=== PATIENT | male | born 1950 | race Caucasian/White ===

== ENCOUNTER 2016-06-17 00:01 | Emergency (ER) | payer OTHER ==
[~2016-06-17] VITALS: Ht 188 cm; Wt 89.0 kg
[~2016-06-17 00:01] MED LIST: ASPI-1093 PO; CLOP75 PO; INSNOV SQ; INSU100V12 SQ; LISI-661 PO; LURA40 PO; MIRT15 PO; TAMS0.4C32 PO; VENL75CA55 PO
[2016-06-17] MEDS ORDERED: INSLAN SQ (00:07)
[2016-06-17] MEDS ORDERED: GABA-533 PO (00:07)
[2016-06-17 02:35] VITALS: BP 136/89
== END 2016-06-17 02:59 | disposition home or self-care (01) ==
LOC: EMS 00:03
DX: F32.9 Major depressive disorder, single episode, unspecified (principal); E11.9 Type 2 diabetes mellitus without complications; I10 Essential (primary) hypertension; F17.210 Nicotine dependence, cigarettes, uncomplicated; Z79.4 Long term (current) use of insulin
CPT/HCPCS: 82962; 99284

== ENCOUNTER 2016-08-06 23:40 | Emergency (ER) | payer OTHER ==
[~2016-08-06] VITALS: Ht 188 cm; Wt 90.0 kg
[~2016-08-06 23:40] MED LIST changes: -ASPI-1093 PO; +GABA-533 PO; +INSLAN SQ; -INSU100V12 SQ; -LURA40 PO
[2016-08-07 00:20] LABS: BASOPHILS % (AUTO) 0.6 % (0.0-2.0); EOSINOPHILS % (AUTO) 2.7 % (1.0-6.0); HEMATOCRIT 34.9 % (41-53); HEMOGLOBIN 11.7 g/dL (13.5-17.5); LYMPHOCYTES # (AUTO) 2.6 K/uL (1.0-4.8); LYMPHOCYTES % (AUTO) 24.3 % (22.0-44.0); MEAN CORPUSCULAR HEMOGLOBIN 30.4 pg (26.0-34.0); MEAN CORPUSCULAR HGB CONC 33.5 G/dL (31.0-37.0); MEAN CORPUSCULAR VOLUME 91 fL (80-100); MONOCYTES % (AUTO) 9.2 % (2.0-9.0); NEUTROPHILS # (AUTO) 6.7 K/uL (1.8-7.7); NEUTROPHILS % (AUTO) 63.2 % (40.0-70.0); PLATELET COUNT (AUTO) 327 K/uL (150-450); RED BLOOD CELL COUNT(AUTO) 3.85 MIL/uL (4.50-5.90); RED CELL DISTRIBUTION WIDTH 14.1 % (11.5-14.5); WHITE BLOOD COUNT (AUTO) 10.7 K/uL (4.5-11.0)
[2016-08-07 00:34] LABS: ANION GAP 13 mmol/L (8-16); CALCIUM, TOTAL 7.9 mg/dL (8.8-10.5); CARBON DIOXIDE 23 mmol/L (22-29); CHLORIDE 105 mmol/L (98-107); CREATININE 1.08 mg/dL (0.60-1.30); GLOMERULAR FILTR. RATE CALC > 60 mL/min (>60); POTASSIUM 3.4 mmol/L (3.5-5.1); SODIUM SERUM 141 mmol/L (136-145); UREA NITROGEN, BLOOD 16 mg/dL (7-18)
[2016-08-07 00:40] LABS: ALANINE AMINOTRANSFERASE 20 U/L (12-78); ALBUMIN 3.3 g/dL (3.4-5.0); ASPARTATE AMINOTRANSFERASE 14 U/L (15-37); BILIRUBIN,TOTAL 0.2 mg/dL (0.1-1.0)
[2016-08-07] MEDS ORDERED: POTASSIUM CHLORIDE 10% 40 MEQ/30 ML LIQUID UDCUP PO ONE (01:00)
[2016-08-07 03:02] LABS: GLUCOSE,POINT OF CARE 252 MG/DL (70-110)
[2016-08-07 04:01] VITALS: BP 117/67
== END 2016-08-07 04:05 | disposition home or self-care (01) ==
LOC: EMS 23:43
DX: E11.65 Type 2 diabetes mellitus with hyperglycemia (principal); Z79.4 Long term (current) use of insulin; Z79.01 Long term (current) use of anticoagulants; F17.210 Nicotine dependence, cigarettes, uncomplicated
CPT/HCPCS: 82962; 99284

== ENCOUNTER 2016-08-14 13:38 | Emergency (ER) | payer OTHER ==
[~2016-08-14] VITALS: Ht 188 cm; Wt 92.7 kg
[2016-08-14 13:52] LABS: GLUCOSE COMMENT 1 Repeated; GLUCOSE,POINT OF CARE 455 MG/DL (70-110)
[2016-08-14] MEDS ORDERED: TraMADol HCL 50 MG TABLET PO ONE (15:15)
[2016-08-14] MEDS ORDERED: INSULIN REGULAR, HUMAN 100 UNITS/ML SQ ONE (15:15)
[2016-08-14 15:16] LABS: GLUCOSE COMMENT 1 Repeated; GLUCOSE,POINT OF CARE 414 MG/DL (70-110)
[2016-08-14 16:35] VITALS: BP 140/74
[2016-08-14 16:42] LABS: GLUCOSE,POINT OF CARE 313 MG/DL (70-110)
== END 2016-08-14 16:55 | disposition home or self-care (01) ==
LOC: EMS 13:39
DX: S20.212A Contusion of left front wall of thorax, initial encounter (principal); E11.9 Type 2 diabetes mellitus without complications; I10 Essential (primary) hypertension; F17.210 Nicotine dependence, cigarettes, uncomplicated; Z79.4 Long term (current) use of insulin; W01.198A Fall on same level from slipping, tripping and stumbling with subsequent striking against other object, initial encounter; Y93.89 Activity, other specified; Y92.89 Other specified places as the place of occurrence of the external cause; Y99.8 Other external cause status
CPT/HCPCS: 71101; 82962; 96372; 99284; J1815

== ENCOUNTER 2017-01-05 13:49 | Inpatient (IN) | payer MEDICARE, OTHER ==
[~2017-01-05] VITALS: Ht 180.3 cm; Wt 86.6 kg
[2017-01-05 14:27] LABS: GLUCOSE,POINT OF CARE 253 MG/DL (70-110)
[2017-01-05] MEDS ORDERED: SODIUM CHLORIDE 0.9% 1,000 ML IV ONE ×2 (15:15→16:45)
[2017-01-05 15:35] LABS: BASOPHILS % (AUTO) 0.8 % (0.0-2.0); EOSINOPHILS % (AUTO) 1.2 % (1.0-6.0); HEMATOCRIT 43.7 % (41-53); HEMOGLOBIN 14.8 g/dL (13.5-17.5); LYMPHOCYTES % (AUTO) 22.5 % (22.0-44.0); MEAN CORPUSCULAR HEMOGLOBIN 30.8 pg (26.0-34.0); MEAN CORPUSCULAR HGB CONC 33.9 G/dL (31.0-37.0); MEAN CORPUSCULAR VOLUME 91 fL (80-100); MONOCYTES # (AUTO) 0.4 K/uL (0.1-1.0); MONOCYTES % (AUTO) 4.7 % (2.0-9.0); NEUTROPHILS # (AUTO) 6.2 K/uL (1.8-7.7); NEUTROPHILS % (AUTO) 70.8 % (40.0-70.0); PLATELET COUNT (AUTO) 434 K/uL (150-450); RED BLOOD CELL COUNT(AUTO) 4.81 MIL/uL (4.50-5.90); RED CELL DISTRIBUTION WIDTH 15.4 % (11.5-14.5); WHITE BLOOD COUNT (AUTO) 8.7 K/uL (4.5-11.0)
[2017-01-05 15:46] LABS: ANION GAP 16 mmol/L (8-16); CALCIUM, TOTAL 8.6 mg/dL (8.8-10.5); CARBON DIOXIDE 23 mmol/L (22-29); CHLORIDE 112 mmol/L (98-107); CREATININE 0.87 mg/dL (0.60-1.30); GLOMERULAR FILTR. RATE CALC > 60 mL/min (>60); POTASSIUM 3.6 mmol/L (3.5-5.1); SODIUM SERUM 151 mmol/L (136-145); UREA NITROGEN, BLOOD 11 mg/dL (7-18)
[2017-01-05 15:55] LABS: ALANINE AMINOTRANSFERASE 28 U/L (12-78); ALBUMIN 3.6 g/dL (3.4-5.0); ASPARTATE AMINOTRANSFERASE 15 U/L (15-37); BILIRUBIN,TOTAL 0.1 mg/dL (0.1-1.0); TOTAL PROTEIN, SERUM 7.8 g/dL (6.4-8.2)
[2017-01-05] MEDS ORDERED: ASPIRIN 81 MG CHEWABLE TABLET PO ONE (16:45)
[2017-01-05] MEDS ORDERED: ONDANSETRON HCL 4 MG/2 ML VIAL IVP PRN ×2 (17:30→20:00)
[2017-01-05] MEDS ORDERED: ACETAMINOPHEN 325 MG TABLET PO PRN (17:30)
[2017-01-05] MEDS ORDERED: 0.9% SODIUM CHLORIDE 10 ML SYRINGE IVP PRN (17:30)
[2017-01-05 18:40] VITALS: BP 157/77
[2017-01-05] MEDS ORDERED: POTASSIUM CHLORIDE 20 MEQ ER TABLET PO PRN (20:00)
[2017-01-05] MEDS ORDERED: MAGNESIUM SULFATE 4 GM/WATER 100 ML IV PRN (20:00)
[2017-01-05] MEDS ORDERED: DEXTROSE 50%-WATER 25 GM/50 ML SYRINGE IVP PRN (20:00)
[2017-01-05] MEDS ORDERED: ALBUTEROL SULFATE 2.5 MG/0.5 ML NEB SOLUTION NEB PRN (20:00)
[2017-01-05] MEDS ORDERED: MAGNESIUM HYDROXIDE SUSPENSION 30 ML UDCUP PO PRN (20:00)
[2017-01-05] MEDS ORDERED: MAGNESIUM OXIDE 400 MG TABLET PO PRN (20:00)
[2017-01-05] MEDS ORDERED: LORazepam 2 MG/ML VIAL IVP PRN (20:00)
[2017-01-05] MEDS ORDERED: MAGNESIUM SULFATE 2 GM in DEXTROSE 5%-WATER 50 ML IV PRN (20:00)
[2017-01-05 20:04] VITALS: BP 122/86
[2017-01-05] MEDS: DOCUSATE SODIUM 100 MG CAPSULE PO SCH (21:00)
[2017-01-05] MEDS: SODIUM CHLORIDE 0.45% 1,000 ML IV SCH (21:05)
[2017-01-05] MEDS: INSULIN ASPART 100 UNITS/ML SQ PRN (21:12)
[2017-01-05] MEDS: POTASSIUM CHL 10 MEQ/WATER 50 ML IV PRN ×2 (22:21→23:54)
[2017-01-06] VITALS (7 sets, daily range): BP systolic 121–148; BP diastolic 65–72
[2017-01-06] MEDS: POTASSIUM CHL 10 MEQ/WATER 50 ML IV PRN (01:46)
[2017-01-06] MEDS: INSULIN ASPART 100 UNITS/ML SQ PRN ×4 (06:21→21:36)
[2017-01-06 06:28] LABS: GLUCOSE COMMENT 1 Received Meds; GLUCOSE,POINT OF CARE 191 MG/DL (70-110)
[2017-01-06 06:48] LABS: GLUCOSE COMMENT 1 Received Meds; GLUCOSE,POINT OF CARE 170 MG/DL (70-110)
[2017-01-06 07:03] LABS: ANION GAP 12 mmol/L (8-16); CALCIUM, TOTAL 7.8 mg/dL (8.8-10.5); CARBON DIOXIDE 21 mmol/L (22-29); CHLORIDE 111 mmol/L (98-107); CREATININE 0.79 mg/dL (0.60-1.30); GLOMERULAR FILTR. RATE CALC > 60 mL/min (>60); POTASSIUM 3.4 mmol/L (3.5-5.1); SODIUM SERUM 144 mmol/L (136-145); UREA NITROGEN, BLOOD 12 mg/dL (7-18)
[2017-01-06] MEDS: DOCUSATE SODIUM 100 MG CAPSULE PO SCH ×2 (08:22→21:32)
[2017-01-06] MEDS: PANTOPRAZOLE SODIUM 40 MG/VIAL IVP SCH (08:22)
[2017-01-06] MEDS: MULTIVITAMINS WITH MINERALS, THERAPEUTIC TABLET PO SCH (08:22)
[2017-01-06 10:20] LABS: APPEARANCE,URINE CLEAR (CLEAR); GLUCOSE, URINE (UA) >=1000 mg/dL (NEGATIVE); KETONES,URINE 15 mg/dL (NEGATIVE); LEUKOCYTE ESTERASE ,URINE NEGATIVE (NEGATIVE); OCCULT BLOOD,URINE TRACE (NEGATIVE); PH,URINE 5.5 (5.0-8.0); PROTEIN,URINE NEGATIVE (NEGATIVE)
[2017-01-06 10:30] LABS: RBC,URINE 0-2 /HPF (0-2); WBC,URINE None Seen /HPF (0-5)
[2017-01-06] MEDS: ASPIRIN 81 MG CHEWABLE TABLET PO SCH (11:39)
[2017-01-06] MEDS: SODIUM CHLORIDE 0.45% 1,000 ML IV SCH (11:46)
[2017-01-06 18:08] LABS: GLUCOSE COMMENT 1 Received Meds; GLUCOSE,POINT OF CARE 156 MG/DL (70-110)
[2017-01-06] MEDS: ACETAMINOPHEN 325 MG TABLET PO PRN (19:04)
[2017-01-06] MEDS ORDERED: ATORVASTATIN CALCIUM 20 MG TABLET PO SCH (21:00)
[2017-01-06 21:48] LABS: GLUCOSE COMMENT 1 Received Meds; GLUCOSE,POINT OF CARE 147 MG/DL (70-110)
[2017-01-07] MEDS: SODIUM CHLORIDE 0.45% 1,000 ML IV SCH (03:24)
[2017-01-07 04:20] VITALS: BP 146/74
[2017-01-07] MEDS: INSULIN ASPART 100 UNITS/ML SQ PRN ×3 (06:01→17:38)
[2017-01-07 06:13] LABS: GLUCOSE COMMENT 1 Received Meds; GLUCOSE,POINT OF CARE 208 MG/DL (70-110)
[2017-01-07 06:23] LABS: GLUCOSE COMMENT 1 Received Meds; GLUCOSE,POINT OF CARE 163 MG/DL (70-110)
[2017-01-07 07:38] VITALS: BP 152/66
[2017-01-07] MEDS: ASPIRIN 81 MG CHEWABLE TABLET PO SCH (08:02)
[2017-01-07] MEDS: DOCUSATE SODIUM 100 MG CAPSULE PO SCH (08:02)
[2017-01-07] MEDS: MULTIVITAMINS WITH MINERALS, THERAPEUTIC TABLET PO SCH (08:02)
[2017-01-07] MEDS: PANTOPRAZOLE SODIUM 40 MG/VIAL IVP SCH (08:02)
[2017-01-07] MEDS: ACETAMINOPHEN 325 MG TABLET PO PRN (08:03)
[2017-01-07 10:26] LABS: ANION GAP 11 mmol/L (8-16); CALCIUM, TOTAL 8.5 mg/dL (8.8-10.5); CARBON DIOXIDE 22 mmol/L (22-29); CHLORIDE 113 mmol/L (98-107); CREATININE 0.89 mg/dL (0.60-1.30); GLOMERULAR FILTR. RATE CALC > 60 mL/min (>60); POTASSIUM 4.2 mmol/L (3.5-5.1); SODIUM SERUM 146 mmol/L (136-145); UREA NITROGEN, BLOOD 8 mg/dL (7-18)
[2017-01-07 11:30] VITALS: BP 144/76
[2017-01-07] MEDS ORDERED: SODIUM CHLORIDE 0.9% 250 ML IV ONE (14:17)
[2017-01-07 22:52] LABS: GLUCOSE COMMENT 1 Received Meds; GLUCOSE,POINT OF CARE 234 MG/DL (70-110)
[2017-01-07 22:52] LABS: GLUCOSE COMMENT 1 Received Meds; GLUCOSE,POINT OF CARE 192 MG/DL (70-110)
== END 2017-01-07 18:50 | disposition home or self-care (01) | DRG 896 ==
LOC: EMS 13:50 → 5S 17:27 → 6N 01-06 16:30
PROVIDERS: ADMIT Internal Medicine; ATTEND Internal Medicine
DX: F10.129 Alcohol abuse with intoxication, unspecified (principal); K85.90 Acute pancreatitis without necrosis or infection, unspecified; E87.0 Hyperosmolality and hypernatremia; E11.65 Type 2 diabetes mellitus with hyperglycemia; I10 Essential (primary) hypertension; F32.9 Major depressive disorder, single episode, unspecified; F17.210 Nicotine dependence, cigarettes, uncomplicated; Z79.4 Long term (current) use of insulin; Z86.73 Personal history of transient ischemic attack (TIA), and cerebral infarction without residual deficits; Z90.49 Acquired absence of other specified parts of digestive tract; Z95.5 Presence of coronary angioplasty implant and graft; Z91.19 Patient's noncompliance with other medical treatment and regimen
CPT/HCPCS: 70450; 70551; 82948; 82962; 83735; 84132; 93005; 96360; 96361; 99285; C9113; G0480; J3475; J3480; J7030; J7050; J7060

== ENCOUNTER 2017-03-24 13:05 | Emergency (ER) | payer MEDICARE, OTHER ==
[~2017-03-24] VITALS: Ht 182.9 cm; Wt 86.4 kg
[~2017-03-24 13:05] MED LIST changes: -CLOP75 PO; -GABA-533 PO; -INSLAN SQ; -MIRT15 PO
[2017-03-24 13:32] LABS: GLUCOSE,POINT OF CARE 301 MG/DL (70-110)
[2017-03-24] MEDS ORDERED: ALBUTEROL SULFATE 2.5 MG/0.5 ML NEB SOLUTION NEB ONE (14:30)
[2017-03-24] MEDS ORDERED: IPRATROPIUM BROMIDE 0.5 MG/2.5 ML NEB SOLUTION NEB ONE (14:30)
[2017-03-24 17:26] VITALS: BP 139/73
== END 2017-03-24 17:31 | disposition home or self-care (01) ==
LOC: EMS 13:09
DX: T59.91XA Toxic effect of unspecified gases, fumes and vapors, accidental (unintentional), initial encounter (principal); F10.20 Alcohol dependence, uncomplicated; E11.9 Type 2 diabetes mellitus without complications; I10 Essential (primary) hypertension; F17.210 Nicotine dependence, cigarettes, uncomplicated; Z79.4 Long term (current) use of insulin; Y92.89 Other specified places as the place of occurrence of the external cause
CPT/HCPCS: 82948; 82962; 94640; 99283

== ENCOUNTER 2017-03-30 14:11 | Inpatient (IN) | payer MEDICARE ==
[~2017-03-30] VITALS: Ht 185.4 cm; Wt 88.6 kg
[2017-03-30 14:51] VITALS: BP 103/54
[2017-03-30] MEDS ORDERED: INFLUENZA VIRUS VACCINE QVS 2017-18 (3YR+)/PF 60 MCG/0.5 ML SYRINGE IM ONE (15:30)
[2017-03-30] MEDS ORDERED: LOPERAMIDE HCL 2 MG CAPSULE PO PRN ×2 (15:45)
[2017-03-30] MEDS ORDERED: MAG HYDROX/AL HYDROX/SIMETH ES 30 ML SUSPENSION UDCUP PO PRN (15:45)
[2017-03-30] MEDS ORDERED: GuaiFENesin/D-METHORPHAN [SUGAR-FREE] 200-20MG/10 ML SYRUP UDCUP PO PRN (15:45)
[2017-03-30] MEDS ORDERED: HydrOXYzine PAMOATE 50 MG CAPSULE PO PRN (15:45)
[2017-03-30] MEDS ORDERED: MAGNESIUM HYDROXIDE SUSPENSION 30 ML UDCUP PO PRN (15:45)
[2017-03-30] MEDS ORDERED: LORazepam 2 MG TABLET PO PRN ×2 (15:45)
[2017-03-30] MEDS ORDERED: TUBERCULIN, PURIFIED PROTEIN DERIVATIVE 5 TU/0.1 ML SYG ID ONE (15:45)
[2017-03-30] MEDS ORDERED: ZOLPIDEM TARTRATE 10 MG TABLET PO PRN (15:45)
[2017-03-30] MEDS ORDERED: QUEtiapine FUMARATE 100 MG TABLET PO PRN (15:45)
[2017-03-30] MEDS ORDERED: CYANOCOBALAMIN 1,000 MCG/ML VIAL IM ONE (15:45)
[2017-03-30] MEDS ORDERED: ACETAMINOPHEN 325 MG TABLET PO PRN ×2 (15:45→17:45)
[2017-03-30] MEDS ORDERED: PROMETHAZINE HCL 25 MG TABLET PO PRN (15:45)
[2017-03-30 16:00] VITALS: BP 103/66
[2017-03-30] MEDS ORDERED: VENL-68 PO (16:01)
[2017-03-30 17:00] VITALS: BP 110/62
[2017-03-30 17:02] LABS: GLUCOSE,POINT OF CARE 249 MG/DL (70-110)
[2017-03-30] MEDS: THIAMINE HCL 100 MG TABLET PO SCH (17:03)
[2017-03-30] MEDS ORDERED: DEXTROSE 50%-WATER 25 GM/50 ML SYRINGE IVP PRN (17:45)
[2017-03-30 18:00] VITALS: BP 105/65
[2017-03-30] MEDS: INSULIN ASPART 100 UNITS/ML SQ PRN ×2 (18:02→21:20)
[2017-03-30 19:00] VITALS: BP 114/68
[2017-03-30 20:33] LABS: GLUCOSE,POINT OF CARE 290 MG/DL (70-110)
[2017-03-31] VITALS (7 sets, daily range): BP systolic 122–149; BP diastolic 65–82
[2017-03-31] MEDS ORDERED: GLUCAGON,HUMAN RECOMBINANT 1 MG VIAL IM PRN (00:30)
[2017-03-31 06:18] LABS: GLUCOSE,POINT OF CARE 211 MG/DL (70-110)
[2017-03-31] MEDS ORDERED: LORazepam 2 MG TABLET PO PRN (07:00)
[2017-03-31] MEDS: INSULIN ASPART 100 UNITS/ML SQ PRN ×4 (07:12→20:59)
[2017-03-31 08:00] LABS: BASOPHILS # (AUTO) 0.06 K/uL (0.00-0.20); BASOPHILS % (AUTO) 0.7 % (0.0-2.0); HEMATOCRIT 40.6 % (41-53); HEMOGLOBIN 13.7 g/dL (13.5-17.5); LYMPHOCYTES # (AUTO) 1.9 K/uL (1.0-4.8); LYMPHOCYTES % (AUTO) 23.2 % (22.0-44.0); MEAN CORPUSCULAR HEMOGLOBIN 31.2 pg (26.0-34.0); MEAN CORPUSCULAR HGB CONC 33.7 G/dL (31.0-37.0); MEAN CORPUSCULAR VOLUME 93 fL (80-100); MONOCYTES # (AUTO) 0.7 K/uL (0.1-1.0); MONOCYTES % (AUTO) 8.2 % (2.0-9.0); NEUTROPHILS # (AUTO) 5.3 K/uL (1.8-7.7); NEUTROPHILS % (AUTO) 65.4 % (40.0-70.0); PLATELET COUNT (AUTO) 308 K/uL (150-450); RED BLOOD CELL COUNT(AUTO) 4.38 MIL/uL (4.50-5.90); RED CELL DISTRIBUTION WIDTH 14.5 % (11.5-14.5); WHITE BLOOD COUNT (AUTO) 8.1 K/uL (4.5-11.0)
[2017-03-31 08:20] LABS: ALANINE AMINOTRANSFERASE 23 U/L (12-78); ALBUMIN 3.5 g/dL (3.4-5.0); ANION GAP 8 mmol/L (8-16); ASPARTATE AMINOTRANSFERASE 15 U/L (15-37); BILIRUBIN,TOTAL 0.4 mg/dL (0.1-1.0); CALCIUM, TOTAL 8.8 mg/dL (8.8-10.5); CARBON DIOXIDE 27 mmol/L (22-29); CHLORIDE 106 mmol/L (98-107); CHOL/HDL RATIO 2.7 (4.2-7.3); CREATININE 1.08 mg/dL (0.60-1.30); GLOMERULAR FILTR. RATE CALC > 60 mL/min (>60); POTASSIUM 4.5 mmol/L (3.5-5.1); SODIUM SERUM 141 mmol/L (136-145); THYROID STIMULATING HORMONE 0.94 uIU/mL (0.36-3.74); TOTAL PROTEIN, SERUM 7.1 g/dL (6.4-8.2); UREA NITROGEN, BLOOD 24 mg/dL (7-18)
[2017-03-31 08:35] LABS: HEMOGLOBIN A1C 8.9 % (4.5-6.2)
[2017-03-31] MEDS: MULTIVITAMINS WITH MINERALS, THERAPEUTIC TABLET PO SCH (08:53)
[2017-03-31] MEDS: LORazepam 2 MG TABLET PO SCH ×4 (08:53→20:38)
[2017-03-31] MEDS: FOLIC ACID 1 MG TABLET PO SCH (08:53)
[2017-03-31] MEDS: THIAMINE HCL 100 MG TABLET PO SCH ×2 (08:53→16:33)
[2017-03-31] MEDS: NALTREXONE HCL 50 MG TABLET PO SCH (08:53)
[2017-03-31] MEDS: NICOTINE 21 MG/24 HOUR PATCH TD SCH (08:53)
[2017-03-31] MEDS ORDERED: VENLAFAXINE HCL 75 MG TABLET PO SCH (09:00)
[2017-03-31 16:18] LABS: GLUCOSE,POINT OF CARE 267 MG/DL (70-110)
[2017-03-31 16:32] LABS: GLUCOSE,POINT OF CARE 296 MG/DL (70-110)
[2017-03-31] MEDS ORDERED: ACETAMINOPHEN 325 MG TABLET PO PRN (19:00)
[2017-03-31] MEDS ORDERED: ALBUTEROL SULFATE HFA 90 MCG/PUFF 8 GM INHALER IH PRN (19:00)
[2017-03-31] MEDS ORDERED: IBUPROFEN 400 MG TABLET PO PRN (19:00)
[2017-03-31 20:28] LABS: GLUCOSE,POINT OF CARE 345 MG/DL (70-110)
[2017-03-31] MEDS: MIRTAZAPINE 15 MG TABLET PO SCH (20:37)
[2017-04-01 06:40] LABS: GLUCOSE,POINT OF CARE 248 MG/DL (70-110)
[2017-04-01 06:45] VITALS: BP 135/78
[2017-04-01] MEDS: INSULIN ASPART 100 UNITS/ML SQ PRN ×4 (07:07→20:34)
[2017-04-01 08:40] VITALS: BP 148/75
[2017-04-01] MEDS: THIAMINE HCL 100 MG TABLET PO SCH ×2 (09:05→17:02)
[2017-04-01] MEDS: NALTREXONE HCL 50 MG TABLET PO SCH (09:05)
[2017-04-01] MEDS: NICOTINE 21 MG/24 HOUR PATCH TD SCH (09:06)
[2017-04-01] MEDS: MULTIVITAMINS WITH MINERALS, THERAPEUTIC TABLET PO SCH (09:06)
[2017-04-01] MEDS: FOLIC ACID 1 MG TABLET PO SCH (09:06)
[2017-04-01] MEDS: LORazepam 2 MG TABLET PO SCH ×4 (09:06→20:26)
[2017-04-01] MEDS: LISINOPRIL 10 MG TABLET PO SCH (09:06)
[2017-04-01] MEDS: TAMSULOSIN HCL 0.4 MG CAPSULE PO SCH (09:06)
[2017-04-01 09:07] LABS: THYROID STIMULATING HORMONE 0.79 uIU/mL (0.36-3.74)
[2017-04-01 09:13] LABS: HEMOGLOBIN A1C 8.9 % (4.5-6.2)
[2017-04-01 11:38] LABS: GLUCOSE,POINT OF CARE 289 MG/DL (70-110)
[2017-04-01 17:00] VITALS: BP 100/60
[2017-04-01 17:13] LABS: GLUCOSE,POINT OF CARE 329 MG/DL (70-110)
[2017-04-01 20:25] VITALS: BP 114/63
[2017-04-01] MEDS: MIRTAZAPINE 15 MG TABLET PO SCH (20:26)
[2017-04-01 20:52] LABS: GLUCOSE,POINT OF CARE 334 MG/DL (70-110)
[2017-04-02 06:26] VITALS: BP 110/70
[2017-04-02] MEDS ORDERED: LORazepam 1 MG TABLET PO PRN (07:00)
[2017-04-02 07:17] LABS: GLUCOSE,POINT OF CARE 249 MG/DL (70-110)
[2017-04-02] MEDS: INSULIN ASPART 100 UNITS/ML SQ PRN ×4 (07:19→20:15)
[2017-04-02] MEDS: TAMSULOSIN HCL 0.4 MG CAPSULE PO SCH (08:39)
[2017-04-02] MEDS: LORazepam 1 MG TABLET PO SCH ×4 (08:39→20:11)
[2017-04-02] MEDS: THIAMINE HCL 100 MG TABLET PO SCH ×2 (08:39→16:55)
[2017-04-02] MEDS: FOLIC ACID 1 MG TABLET PO SCH (08:39)
[2017-04-02] MEDS: LISINOPRIL 10 MG TABLET PO SCH (08:40)
[2017-04-02] MEDS: MULTIVITAMINS WITH MINERALS, THERAPEUTIC TABLET PO SCH (08:40)
[2017-04-02] MEDS: NICOTINE 21 MG/24 HOUR PATCH TD SCH (08:40)
[2017-04-02] MEDS: NALTREXONE HCL 50 MG TABLET PO SCH (08:40)
[2017-04-02 09:18] VITALS: BP 145/70
[2017-04-02 12:10] LABS: GLUCOSE,POINT OF CARE 327 MG/DL (70-110)
[2017-04-02 12:40] VITALS: BP 106/52
[2017-04-02 16:10] VITALS: BP 115/86
[2017-04-02 16:20] VITALS: BP 115/66
[2017-04-02 17:28] LABS: GLUCOSE,POINT OF CARE 230 MG/DL (70-110)
[2017-04-02] MEDS: MIRTAZAPINE 15 MG TABLET PO SCH (20:11)
[2017-04-02 20:27] LABS: GLUCOSE,POINT OF CARE 291 MG/DL (70-110)
[2017-04-03 06:18] VITALS: BP 140/80
[2017-04-03 06:48] LABS: GLUCOSE COMMENT 1 Received Meds; GLUCOSE,POINT OF CARE 294 MG/DL (70-110)
[2017-04-03] MEDS: INSULIN ASPART 100 UNITS/ML SQ PRN ×4 (06:48→20:12)
[2017-04-03] MEDS ORDERED: LORazepam 1 MG TABLET PO PRN (07:00)
[2017-04-03 08:46] VITALS: BP 112/68
[2017-04-03 09:00] VITALS: BP 112/68
[2017-04-03] MEDS: NICOTINE 21 MG/24 HOUR PATCH TD SCH (09:03)
[2017-04-03] MEDS: MULTIVITAMINS WITH MINERALS, THERAPEUTIC TABLET PO SCH (09:03)
[2017-04-03] MEDS: LISINOPRIL 10 MG TABLET PO SCH (09:03)
[2017-04-03] MEDS: TAMSULOSIN HCL 0.4 MG CAPSULE PO SCH (09:03)
[2017-04-03] MEDS: FOLIC ACID 1 MG TABLET PO SCH (09:03)
[2017-04-03] MEDS: NALTREXONE HCL 50 MG TABLET PO SCH (09:03)
[2017-04-03] MEDS: THIAMINE HCL 100 MG TABLET PO SCH ×2 (09:03→16:57)
[2017-04-03 11:13] LABS: GLUCOSE,POINT OF CARE 379 MG/DL (70-110)
[2017-04-03 16:06] VITALS: BP 122/61
[2017-04-03 16:09] VITALS: BP 122/61
[2017-04-03 16:28] LABS: GLUCOSE,POINT OF CARE 290 MG/DL (70-110)
[2017-04-03] MEDS: MIRTAZAPINE 15 MG TABLET PO SCH (20:07)
[2017-04-03 21:22] LABS: GLUCOSE,POINT OF CARE 310 MG/DL (70-110)
[2017-04-04 00:01] VITALS: BP 128/65
[2017-04-04 01:33] VITALS: BP 128/65
[2017-04-04] MEDS: INSULIN ASPART 100 UNITS/ML SQ PRN ×2 (06:32→11:06)
[2017-04-04 07:03] LABS: GLUCOSE,POINT OF CARE 277 MG/DL (70-110)
[2017-04-04 08:41] VITALS: BP_SYST 110; BP_SYST 128; BP_DIAS 65; BP_DIAS 67
[2017-04-04] MEDS: FOLIC ACID 1 MG TABLET PO SCH (08:52)
[2017-04-04] MEDS: TAMSULOSIN HCL 0.4 MG CAPSULE PO SCH (08:52)
[2017-04-04] MEDS: NALTREXONE HCL 50 MG TABLET PO SCH (08:52)
[2017-04-04] MEDS: MULTIVITAMINS WITH MINERALS, THERAPEUTIC TABLET PO SCH (08:52)
[2017-04-04] MEDS: THIAMINE HCL 100 MG TABLET PO SCH (08:52)
[2017-04-04] MEDS: LISINOPRIL 10 MG TABLET PO SCH (08:52)
[2017-04-04] MEDS: NICOTINE 21 MG/24 HOUR PATCH TD SCH (08:53)
[2017-04-04 11:13] LABS: GLUCOSE,POINT OF CARE 351 MG/DL (70-110)
[2017-04-04 12:30] VITALS: BP 129/77
[2017-04-04] MEDS ORDERED: NALT50TA PO (14:34)
[2017-04-04] MEDS ORDERED: THIA100 PO (20:40)
[2017-04-04] MEDS ORDERED: NALT50TA6 PO (20:40)
[2017-04-04] MEDS ORDERED: FOLI1 PO (20:40)
[2017-04-04] MEDS ORDERED: MIRT15 PO (20:40)
== END 2017-04-04 20:30 | disposition short-term general hospital (02) | DRG 881 ==
LOC: B2X 16:00
PROVIDERS: ADMIT Psychiatry & Neurology Psychiatry; ATTEND Psychiatry & Neurology Psychiatry
DX: F32.9 Major depressive disorder, single episode, unspecified (principal); E11.9 Type 2 diabetes mellitus without complications; J44.9 Chronic obstructive pulmonary disease, unspecified; E78.5 Hyperlipidemia, unspecified; F14.90 Cocaine use, unspecified, uncomplicated; I10 Essential (primary) hypertension; K58.9 Irritable bowel syndrome, unspecified; N40.0 Benign prostatic hyperplasia without lower urinary tract symptoms; Z79.899 Other long term (current) drug therapy; Z81.8 Family history of other mental and behavioral disorders; Z82.49 Family history of ischemic heart disease and other diseases of the circulatory system; Z83.3 Family history of diabetes mellitus; Z91.19 Patient's noncompliance with other medical treatment and regimen; Z95.5 Presence of coronary angioplasty implant and graft
CPT/HCPCS: 82962; 83036; 84439; 84443; 86592; J3420

== ENCOUNTER 2017-04-21 16:19 | Inpatient (IN) | payer MEDICARE ==
[~2017-04-21] VITALS: Ht 188 cm; Wt 84.6 kg
[~2017-04-21 16:19] MED LIST changes: +FOLI1 PO; -INSNOV SQ; -LISI-661 PO; +MIRT15 PO; +NALT50TA PO; +NALT50TA6 PO; +THIA100 PO; -VENL75CA55 PO
[2017-04-21] MEDS ORDERED: QUEtiapine FUMARATE 100 MG TABLET PO PRN (18:15)
[2017-04-21 18:37] VITALS: BP 159/95
[2017-04-21 18:45] VITALS: BP 163/89
[2017-04-21 19:45] VITALS: BP 162/87
[2017-04-21] MEDS: LORazepam 1 MG TABLET PO PRN (19:45)
[2017-04-21 19:52] LABS: GLUCOSE,POINT OF CARE 356 MG/DL (70-110)
[2017-04-21] MEDS: MIRTAZAPINE 15 MG TABLET PO SCH (20:34)
[2017-04-21 20:45] VITALS: BP 164/78
[2017-04-21] MEDS ORDERED: ONDANSETRON HCL 4 MG TABLET PO PRN (21:00)
[2017-04-21] MEDS ORDERED: GLUCAGON,HUMAN RECOMBINANT 1 MG VIAL IM PRN (21:15)
[2017-04-21] MEDS: AmLODIPine BESYLATE 5 MG TABLET PO SCH (21:16)
[2017-04-21] MEDS: INSULIN ASPART 100 UNITS/ML SQ PRN (21:20)
[2017-04-21 21:45] VITALS: BP 155/77
[2017-04-21 22:45] VITALS: BP 150/69
[2017-04-22] VITALS (8 sets, daily range): BP systolic 122–144; BP diastolic 62–75
[2017-04-22] MEDS: ZOLPIDEM TARTRATE 5 MG TABLET PO PRN (00:51)
[2017-04-22 06:17] LABS: GLUCOSE,POINT OF CARE 205 MG/DL (70-110)
[2017-04-22] MEDS: INSULIN ASPART 100 UNITS/ML SQ PRN ×4 (06:46→20:47)
[2017-04-22] MEDS: LORazepam 1 MG TABLET PO PRN ×3 (06:56→20:16)
[2017-04-22 08:21] LABS: BASOPHILS % (AUTO) 0.4 % (0.0-2.0); EOSINOPHILS % (AUTO) 1.9 % (1.0-6.0); HEMATOCRIT 35.3 % (41-53); HEMOGLOBIN 12.5 g/dL (13.5-17.5); LYMPHOCYTES % (AUTO) 24.1 % (22.0-44.0); MEAN CORPUSCULAR HEMOGLOBIN 31.9 pg (26.0-34.0); MEAN CORPUSCULAR HGB CONC 35.4 G/dL (31.0-37.0); MEAN CORPUSCULAR VOLUME 90 fL (80-100); MONOCYTES # (AUTO) 0.9 K/uL (0.1-1.0); MONOCYTES % (AUTO) 10.2 % (2.0-9.0); NEUTROPHILS # (AUTO) 5.3 K/uL (1.8-7.7); NEUTROPHILS % (AUTO) 63.4 % (40.0-70.0); PLATELET COUNT (AUTO) 257 K/uL (150-450); RED BLOOD CELL COUNT(AUTO) 3.92 MIL/uL (4.50-5.90); RED CELL DISTRIBUTION WIDTH 13.8 % (11.5-14.5); WHITE BLOOD COUNT (AUTO) 8.4 K/uL (4.5-11.0)
[2017-04-22 08:47] LABS: ALANINE AMINOTRANSFERASE 50 U/L (12-78); ALBUMIN 3.2 g/dL (3.4-5.0); ANION GAP 14 mmol/L (8-16); ASPARTATE AMINOTRANSFERASE 40 U/L (15-37); BILIRUBIN,TOTAL 1.1 mg/dL (0.1-1.0); CALCIUM, TOTAL 8.4 mg/dL (8.8-10.5); CARBON DIOXIDE 23 mmol/L (22-29); CHLORIDE 94 mmol/L (98-107); CREATININE 0.96 mg/dL (0.60-1.30); GLOMERULAR FILTR. RATE CALC > 60 mL/min (>60); POTASSIUM 4.2 mmol/L (3.5-5.1); SODIUM SERUM 131 mmol/L (136-145); TOTAL PROTEIN, SERUM 6.1 g/dL (6.4-8.2); UREA NITROGEN, BLOOD 25 mg/dL (7-18)
[2017-04-22] MEDS: TAMSULOSIN HCL 0.4 MG CAPSULE PO SCH (08:48)
[2017-04-22] MEDS: THIAMINE HCL 100 MG TABLET PO SCH (08:48)
[2017-04-22] MEDS: FOLIC ACID 1 MG TABLET PO SCH (08:48)
[2017-04-22] MEDS: NALTREXONE HCL 50 MG TABLET PO SCH (08:48)
[2017-04-22] MEDS: AmLODIPine BESYLATE 5 MG TABLET PO SCH (08:48)
[2017-04-22] MEDS: NICOTINE 14 MG/24 HOUR PATCH TD SCH (08:49)
[2017-04-22 11:02] LABS: GLUCOSE,POINT OF CARE 288 MG/DL (70-110)
[2017-04-22 16:17] LABS: GLUCOSE,POINT OF CARE 328 MG/DL (70-110)
[2017-04-22 20:22] LABS: GLUCOSE,POINT OF CARE 307 MG/DL (70-110)
[2017-04-22] MEDS: MIRTAZAPINE 15 MG TABLET PO SCH (20:46)
[2017-04-23 00:09] VITALS: BP 143/77
[2017-04-23] MEDS: INSULIN ASPART 100 UNITS/ML SQ PRN ×3 (06:41→20:26)
[2017-04-23 06:48] LABS: GLUCOSE,POINT OF CARE 266 MG/DL (70-110)
[2017-04-23 07:03] VITALS: BP 123/68
[2017-04-23] MEDS: LORazepam 1 MG TABLET PO PRN ×3 (07:08→16:26)
[2017-04-23 08:18] VITALS: BP 127/63
[2017-04-23] MEDS: NALTREXONE HCL 50 MG TABLET PO SCH (08:25)
[2017-04-23] MEDS: TAMSULOSIN HCL 0.4 MG CAPSULE PO SCH (08:25)
[2017-04-23] MEDS: THIAMINE HCL 100 MG TABLET PO SCH (08:25)
[2017-04-23] MEDS: FOLIC ACID 1 MG TABLET PO SCH (08:25)
[2017-04-23] MEDS: NICOTINE 14 MG/24 HOUR PATCH TD SCH (08:25)
[2017-04-23] MEDS: AmLODIPine BESYLATE 5 MG TABLET PO SCH (08:25)
[2017-04-23] MEDS ORDERED: INSULIN ASPART 100 UNITS/ML SQ ONE ×2 (12:00→13:30)
[2017-04-23 12:07] LABS: GLUCOSE,POINT OF CARE 418 MG/DL (70-110)
[2017-04-23 12:47] LABS: GLUCOSE,POINT OF CARE 390 MG/DL (70-110)
[2017-04-23 16:02] VITALS: BP 123/84
[2017-04-23 16:03] VITALS: BP 123/68
[2017-04-23] MEDS ORDERED: ALBUTEROL SULFATE HFA 90 MCG/PUFF 8 GM INHALER IH PRN (16:45)
[2017-04-23 16:53] LABS: GLUCOSE COMMENT 1 Received Meds; GLUCOSE,POINT OF CARE 328 MG/DL (70-110)
[2017-04-23] MEDS: MIRTAZAPINE 15 MG TABLET PO SCH (20:25)
[2017-04-23 20:32] LABS: GLUCOSE COMMENT 1 Received Meds; GLUCOSE,POINT OF CARE 358 MG/DL (70-110)
[2017-04-24 00:46] VITALS: BP 132/66
[2017-04-24 06:37] LABS: GLUCOSE,POINT OF CARE 265 MG/DL (70-110)
[2017-04-24] MEDS: INSULIN ASPART 100 UNITS/ML SQ PRN ×3 (07:13→20:28)
[2017-04-24] MEDS: NALTREXONE HCL 50 MG TABLET PO SCH (08:24)
[2017-04-24] MEDS: FOLIC ACID 1 MG TABLET PO SCH (08:24)
[2017-04-24] MEDS: AmLODIPine BESYLATE 5 MG TABLET PO SCH (08:24)
[2017-04-24] MEDS: THIAMINE HCL 100 MG TABLET PO SCH (08:24)
[2017-04-24] MEDS: TAMSULOSIN HCL 0.4 MG CAPSULE PO SCH (08:24)
[2017-04-24] MEDS: NICOTINE 14 MG/24 HOUR PATCH TD SCH (08:24)
[2017-04-24 08:27] VITALS: BP 131/70
[2017-04-24] MEDS: LORazepam 1 MG TABLET PO PRN ×2 (10:53→16:36)
[2017-04-24] MEDS ORDERED: INSULIN ASPART 100 UNITS/ML SQ ONE (11:15)
[2017-04-24 12:01] LABS: GLUCOSE,POINT OF CARE 385 MG/DL (70-110)
[2017-04-24 12:01] LABS: GLUCOSE,POINT OF CARE 436 MG/DL (70-110)
[2017-04-24 13:32] LABS: GLUCOSE,POINT OF CARE 292 MG/DL (70-110)
[2017-04-24 16:09] VITALS: BP 124/60
[2017-04-24] MEDS: INSULIN DETEMIR 100 UNITS/ML SQ SCH (16:42)
[2017-04-24] MEDS: MetFORMIN HCL 500 MG TABLET PO SCH (17:00)
[2017-04-24 17:02] LABS: GLUCOSE,POINT OF CARE 285 MG/DL (70-110)
[2017-04-24] MEDS: MIRTAZAPINE 30 MG TABLET PO SCH (20:21)
[2017-04-24 20:32] LABS: GLUCOSE,POINT OF CARE 351 MG/DL (70-110)
[2017-04-24] MEDS: ZOLPIDEM TARTRATE 5 MG TABLET PO PRN (20:59)
[2017-04-25 02:07] VITALS: BP 122/61
[2017-04-25 03:01] VITALS: BP 122/61
[2017-04-25] MEDS: MetFORMIN HCL 500 MG TABLET PO SCH ×2 (06:57→16:47)
[2017-04-25] MEDS: INSULIN ASPART 100 UNITS/ML SQ PRN ×4 (06:58→20:51)
[2017-04-25 07:42] LABS: GLUCOSE,POINT OF CARE 268 MG/DL (70-110)
[2017-04-25] MEDS: TAMSULOSIN HCL 0.4 MG CAPSULE PO SCH (08:29)
[2017-04-25] MEDS: FOLIC ACID 1 MG TABLET PO SCH (08:29)
[2017-04-25] MEDS: AmLODIPine BESYLATE 5 MG TABLET PO SCH (08:29)
[2017-04-25] MEDS: NALTREXONE HCL 50 MG TABLET PO SCH (08:29)
[2017-04-25] MEDS: THIAMINE HCL 100 MG TABLET PO SCH (08:29)
[2017-04-25] MEDS: NICOTINE 14 MG/24 HOUR PATCH TD SCH (08:30)
[2017-04-25] MEDS: LORazepam 1 MG TABLET PO PRN ×3 (08:30→17:05)
[2017-04-25 08:36] VITALS: BP 114/60
[2017-04-25] MEDS: INSULIN DETEMIR 100 UNITS/ML SQ SCH ×2 (08:38→16:46)
[2017-04-25 08:41] LABS: GLUCOSE,POINT OF CARE 376 MG/DL (70-110)
[2017-04-25] MEDS ORDERED: GLUCAGON,HUMAN RECOMBINANT 1 MG VIAL IM PRN (09:15)
[2017-04-25 11:02] LABS: GLUCOSE,POINT OF CARE 352 MG/DL (70-110)
[2017-04-25 16:22] LABS: GLUCOSE,POINT OF CARE 383 MG/DL (70-110)
[2017-04-25] MEDS ORDERED: IBUPROFEN 400 MG TABLET PO PRN (16:30)
[2017-04-25 16:31] VITALS: BP 133/58
[2017-04-25 18:32] VITALS: BP 138/78
[2017-04-25 20:16] LABS: GLUCOSE,POINT OF CARE 263 MG/DL (70-110)
[2017-04-25] MEDS: MIRTAZAPINE 30 MG TABLET PO SCH (20:34)
[2017-04-26 00:08] VITALS: BP 135/65
[2017-04-26 00:48] VITALS: BP 135/65
[2017-04-26 06:17] LABS: GLUCOSE,POINT OF CARE 222 MG/DL (70-110)
[2017-04-26] MEDS: MetFORMIN HCL 500 MG TABLET PO SCH ×2 (06:37→17:00)
[2017-04-26] MEDS: INSULIN ASPART 100 UNITS/ML SQ PRN ×3 (07:04→16:44)
[2017-04-26 08:09] VITALS: BP 127/67
[2017-04-26] MEDS: AmLODIPine BESYLATE 5 MG TABLET PO SCH (08:36)
[2017-04-26] MEDS: FOLIC ACID 1 MG TABLET PO SCH (08:36)
[2017-04-26] MEDS: THIAMINE HCL 100 MG TABLET PO SCH (08:36)
[2017-04-26] MEDS: NALTREXONE HCL 50 MG TABLET PO SCH (08:36)
[2017-04-26] MEDS: TAMSULOSIN HCL 0.4 MG CAPSULE PO SCH (08:36)
[2017-04-26] MEDS: NICOTINE 14 MG/24 HOUR PATCH TD SCH (08:36)
[2017-04-26] MEDS: INSULIN DETEMIR 100 UNITS/ML SQ SCH ×2 (08:47→16:44)
[2017-04-26] MEDS: LORazepam 1 MG TABLET PO PRN ×3 (08:48→17:46)
[2017-04-26 08:57] LABS: GLUCOSE,POINT OF CARE 290 MG/DL (70-110)
[2017-04-26 10:57] LABS: GLUCOSE,POINT OF CARE 276 MG/DL (70-110)
[2017-04-26] MEDS ORDERED: LISI-661 PO (13:44)
[2017-04-26] MEDS ORDERED: CLOP75TA32 PO (13:44)
[2017-04-26] MEDS ORDERED: ASPI81 PO (13:44)
[2017-04-26 14:05] VITALS: BP 138/70
[2017-04-26] MEDS: ASPIRIN 81 MG EC TABLET PO SCH (14:08)
[2017-04-26] MEDS: LISINOPRIL 10 MG TABLET PO SCH (14:08)
[2017-04-26] MEDS ORDERED: NALT50TA PO (16:11)
[2017-04-26] MEDS ORDERED: MIRT30 PO (16:11)
[2017-04-26] MEDS: CLOPIDOGREL BISULFATE 75 MG TABLET PO SCH (16:13)
[2017-04-26] MEDS ORDERED: LOPERAMIDE HCL 2 MG CAPSULE PO PRN (16:15)
[2017-04-26] MEDS ORDERED: MAG HYDROX/AL HYDROX/SIMETH ES 30 ML SUSPENSION UDCUP PO PRN (16:15)
[2017-04-26] MEDS ORDERED: PROMETHAZINE HCL 25 MG TABLET PO PRN (16:15)
[2017-04-26] MEDS ORDERED: ACETAMINOPHEN 325 MG TABLET PO PRN (16:15)
[2017-04-26] MEDS ORDERED: MAGNESIUM HYDROXIDE SUSPENSION 30 ML UDCUP PO PRN (16:15)
[2017-04-26 16:17] LABS: GLUCOSE,POINT OF CARE 294 MG/DL (70-110)
[2017-04-26 16:30] VITALS: BP 141/71
[2017-04-26 19:22] VITALS: BP 113/62
[2017-04-26 20:12] LABS: GLUCOSE,POINT OF CARE 261 MG/DL (70-110)
[2017-04-26] MEDS: MIRTAZAPINE 30 MG TABLET PO SCH (20:29)
[2017-04-27 00:02] VITALS: BP 127/69
[2017-04-27 03:28] VITALS: BP 127/69
[2017-04-27 06:07] LABS: GLUCOSE,POINT OF CARE 214 MG/DL (70-110)
[2017-04-27] MEDS: MetFORMIN HCL 500 MG TABLET PO SCH ×2 (06:22→07:00)
[2017-04-27] MEDS: INSULIN ASPART 100 UNITS/ML SQ PRN ×3 (06:59→16:36)
[2017-04-27 08:07] VITALS: BP 140/73
[2017-04-27] MEDS: NALTREXONE HCL 50 MG TABLET PO SCH (08:44)
[2017-04-27] MEDS: FOLIC ACID 1 MG TABLET PO SCH (08:44)
[2017-04-27] MEDS: CLOPIDOGREL BISULFATE 75 MG TABLET PO SCH (08:45)
[2017-04-27] MEDS: AmLODIPine BESYLATE 5 MG TABLET PO SCH (08:45)
[2017-04-27] MEDS: THIAMINE HCL 100 MG TABLET PO SCH (08:45)
[2017-04-27] MEDS: ASPIRIN 81 MG EC TABLET PO SCH (08:45)
[2017-04-27] MEDS: LISINOPRIL 10 MG TABLET PO SCH (08:45)
[2017-04-27] MEDS: TAMSULOSIN HCL 0.4 MG CAPSULE PO SCH (08:50)
[2017-04-27] MEDS: NICOTINE 14 MG/24 HOUR PATCH TD SCH (08:51)
[2017-04-27] MEDS: INSULIN DETEMIR 100 UNITS/ML SQ SCH (08:55)
[2017-04-27 09:03] LABS: GLUCOSE,POINT OF CARE 283 MG/DL (70-110)
[2017-04-27] MEDS ORDERED: METF500T PO (09:41)
[2017-04-27] MEDS ORDERED: INSU100V12 SQ (09:45)
[2017-04-27] MEDS ORDERED: ASPI-1182 PO (09:48)
[2017-04-27] MEDS ORDERED: TAMS0.4C32 PO (09:49)
[2017-04-27] MEDS ORDERED: AMLO-511 PO (09:50)
[2017-04-27] MEDS ORDERED: CLOP75 PO (09:50)
[2017-04-27] MEDS ORDERED: LISI-661 PO (09:51)
[2017-04-27] MEDS ORDERED: NICO-703 TD (09:51)
[2017-04-27] MEDS: LORazepam 1 MG TABLET PO PRN (10:33)
[2017-04-27 11:17] LABS: GLUCOSE,POINT OF CARE 268 MG/DL (70-110)
[2017-04-27 16:27] LABS: GLUCOSE,POINT OF CARE 287 MG/DL (70-110)
[2017-04-27] MEDS ORDERED: INSULIN DETEMIR 100 UNITS/ML SQ SCH (17:00)
== END 2017-04-27 17:00 | disposition home or self-care (01) | DRG 885 ==
LOC: B2X 18:15
PROVIDERS: ADMIT Psychiatry & Neurology Psychiatry; ATTEND Psychiatry & Neurology Psychiatry
DX: F33.2 Major depressive disorder, recurrent severe without psychotic features (principal); E11.9 Type 2 diabetes mellitus without complications; J44.9 Chronic obstructive pulmonary disease, unspecified; R45.851 Suicidal ideations; E78.5 Hyperlipidemia, unspecified; F14.90 Cocaine use, unspecified, uncomplicated; G47.00 Insomnia, unspecified; I10 Essential (primary) hypertension; I25.10 Atherosclerotic heart disease of native coronary artery without angina pectoris; K58.9 Irritable bowel syndrome, unspecified; N40.0 Benign prostatic hyperplasia without lower urinary tract symptoms; Z59.0 Homelessness; Z95.5 Presence of coronary angioplasty implant and graft
CPT/HCPCS: 82962; 87081; J1815

== ENCOUNTER 2017-11-22 16:24 | Emergency (ER) | payer MEDICARE, OTHER ==
[~2017-11-22] VITALS: Ht 188 cm; Wt 84.1 kg
[~2017-11-22 16:24] MED LIST changes: +AMLO-511 PO; +ASPI-1182 PO; +CLOP75 PO; -FOLI1 PO; +INSU100V12 SQ; +LISI-661 PO; -MIRT15 PO; -NALT50TA PO; -NALT50TA6 PO; -TAMS0.4C32 PO; -THIA100 PO
[2017-11-22] MEDS ORDERED: BUPR75 PO (16:53)
[2017-11-22 16:54] LABS: GLUCOSE,POINT OF CARE 176 MG/DL (70-110)
[2017-11-22 17:23] LABS: BASOPHILS % (AUTO) 0.8 % (0.0-2.0); EOSINOPHILS % (AUTO) 2.5 % (1.0-6.0); HEMATOCRIT 32.2 % (41-53); HEMOGLOBIN 11.1 g/dL (13.5-17.5); LYMPHOCYTES % (AUTO) 25.1 % (22.0-44.0); MEAN CORPUSCULAR HEMOGLOBIN 31.9 pg (26.0-34.0); MEAN CORPUSCULAR HGB CONC 34.6 G/dL (31.0-37.0); MEAN CORPUSCULAR VOLUME 92 fL (80-100); MONOCYTES # (AUTO) 0.7 K/uL (0.1-1.0); MONOCYTES % (AUTO) 9.3 % (2.0-9.0); NEUTROPHILS # (AUTO) 4.9 K/uL (1.8-7.7); NEUTROPHILS % (AUTO) 62.3 % (40.0-70.0); PLATELET COUNT (AUTO) 403 K/uL (150-450); RED BLOOD CELL COUNT(AUTO) 3.49 MIL/uL (4.50-5.90)
[2017-11-22 17:34] LABS: ANION GAP 10 mmol/L (8-16); CALCIUM, TOTAL 8.5 mg/dL (8.8-10.5); CARBON DIOXIDE 22 mmol/L (22-29); CHLORIDE 107 mmol/L (98-107); CREATININE 1.11 mg/dL (0.60-1.30); GLOMERULAR FILTR. RATE CALC > 60 mL/min (>60); GLUCOSE,RANDOM 161 mg/dL (70-110); POTASSIUM 3.1 mmol/L (3.5-5.1); SODIUM SERUM 139 mmol/L (136-145); UREA NITROGEN, BLOOD 14 mg/dL (7-18)
[2017-11-22 17:40] LABS: ALANINE AMINOTRANSFERASE 18 U/L (12-78); ALBUMIN 3.1 g/dL (3.4-5.0); ALKALINE PHOSPHATASE 72 U/L (46-116); ASPARTATE AMINOTRANSFERASE 13 U/L (15-37); TOTAL PROTEIN, SERUM 6.6 g/dL (6.4-8.2)
[2017-11-22 17:50] LABS: BILIRUBIN,TOTAL 0.1 mg/dL (0.1-1.0)
[2017-11-22 19:34] VITALS: BP 122/79
== END 2017-11-22 20:01 | disposition home or self-care (01) ==
LOC: EMS 16:25
DX: F10.229 Alcohol dependence with intoxication, unspecified (principal); I10 Essential (primary) hypertension; E11.9 Type 2 diabetes mellitus without complications; F17.210 Nicotine dependence, cigarettes, uncomplicated; Y90.8 Blood alcohol level of 240 mg/100 ml or more
CPT/HCPCS: 36415; 80053; 82962; 85025; 99284; G0480